=== PATIENT | female | born 1950 | race Caucasian/White ===

== ENCOUNTER 2021-05-24 08:00 | Outpatient (CLI) | payer OTHER | END 2021-05-24 23:59 | disposition home or self-care (01) | LOC: LAB.N 08:00 | PROVIDERS: ATTEND Family Medicine | DX: N39.0 Urinary tract infection, site not specified (principal) | CPT/HCPCS: 87086 ==

== ENCOUNTER 2021-07-31 12:45 | Outpatient (CLI) | payer MEDICARE | END 2021-07-31 12:46 | disposition critical access hospital (66) | LOC: EMS 12:45 | DX: R41.0 Disorientation, unspecified (principal); R46.4 Slowness and poor responsiveness; R25.1 Tremor, unspecified; H53.9 Unspecified visual disturbance; R68.83 Chills (without fever) | CPT/HCPCS: A0425; A0429 ==

== ENCOUNTER 2021-07-31 13:05 | Emergency (ER) | payer MEDICARE, OTHER ==
[2021-07-31] MEDS ORDERED: SODIUM CHLORIDE 0.9% 1,000 ML IV STA (13:43)
--- NOTE | 2021-07-31 13:44 | ED Physician Documentation ---
History of Present Illness - Stated complaint Stated Complaint: CONFUSION - Chief complaint Chief Complaint: Neuro - History obtained from History obtained from: Patient - Additonal information Additional information: The patient is sent to the emergency department by EMS for chief complaint of "I do not feel good". The patient lives at home by herself and is somewhat of a poor historian. She is alert and answers questions and articulate way, but is confused about some of the details. She states that she just "has not felt good" for a couple of days. She says she is constipated for 1 thing. She has not really been coughing and denies any pain in her chest or abdomen. No nausea vomiting. No diarrhea. The patient states that her neighbor came to check on her this morning and was "concerned", the patient is really not sure about what. She denies fevers or chills. No shortness of breath. No other complaints at this time. Review of Systems Ten Systems: 10 systems reviewed and negative Constitutional: reports: Fatigue (Mild) Eyes: reports: Reviewed and negative Ears: reports: Reviewed and negative Nose: reports: Reviewed and negative Throat: reports: Reviewed and negative Cardiac: reports: Reviewed and negative Respiratory: reports: Reviewed and negative GI: reports: Reviewed and negative : reports: Reviewed and negative Skin: reports: Reviewed and negative Musculoskeletal: reports: Reviewed and negative Neurologic: reports: Reviewed and negative Psychiatric: reports: Reviewed and negative Endocrine: reports: Reviewed and negative Immunocompromised: reports: Reviewed and negative PD PAST MEDICAL HISTORY - Present Medications Home Medications: Ambulatory Orders Medication Instructions Recorded Confirmed Sulfamethox/Trimeth 800/160 1 each PO BID #14 tablet 07/31/21 [Bactrim Ds 800/160] - Allergies Allergies/Adverse Reactions: Allergies Allergy/AdvReac Type Severity Reaction Status Date / Time No Known Drug Allergies Allergy Verified 07/31/21 13:16 PD ED PE NORMAL - Vitals Vital signs reviewed: Yes - General General: No acute distress, Well developed/nourished, Other (The patient is alert and bright, and answers questions briskly, but is not clear on some of the details of recent events. However, she is very clear on other details.) - HEENT HEENT: Atraumatic, PERRL, EOMI, Moist mucous membranes - Neck Neck: Supple, no meningeal sign - Cardiac Cardiac: RRR, No murmur, Strong equal pulses - Respiratory Respiratory: No respiratory distress, Clear bilaterally - Abdomen Abdomen: Soft, Non tender, Non distended - Back Back: No CVA TTP - Derm Derm: Normal color, Warm and dry, No rash - Extremities Extremities: No deformity, No edema - Neuro Neuro: Alert and oriented X 3, supervisor stave cutting 2-12 intact, Normal speech - Psych Psych: Normal mood, Normal affect Results - Vitals Vitals: Vital Signs - 24 hr 07/31/21 07/31/21 07/31/21 13:07 13:54 14:24 Temperature 37.2 C Heart Rate 73 64 64 Respiratory 18 21 22 Rate Blood Pressure 151/97 H 138/73 H 147/86 H O2 Saturation 99 96 94 07/31/21 07/31/21 15:00 15:30 Temperature Heart Rate 70 71 Respiratory 23 24 Rate Blood Pressure 154/99 H 167/79 H O2 Saturation 96 95 Oxygen O2 Source Room air - EKG (time done) 1315 Rate: Rate (enter#) (72) Rhythm: Atrial flutter [place]: Normal Intervals: Other (IVCD) QRS: Normal Ischemia: Normal ST segments, Non specific changes Compare to prior EKG: Old EKG unavailable Computer interpretation: Agree with computer - Labs Labs: Laboratory Tests 07/31/21 07/31/21 07/31/21 13:51 13:51 14:55 WBC 7.5 RBC 5.10 Hgb 14.9 Hct 45.9 MCV 90.0 MCH 29.2 MCHC 32.5 RDW 13.5 Plt Count 241 MPV 11.2 H Neut # (Auto) 5.6 Lymph # (Auto) 1.5 [place] # (Auto) 0.4 Eos # (Auto) 0.0 Baso # (Auto) 0.0 Absolute Nucleated RBC 0.00 Nucleated RBC % 0.0 Sodium 141 Potassium 3.7 Chloride 106 Carbon Dioxide 21 Anion Gap 14.0 H BUN 10 Creatinine 0.7 Estimated GFR (MDRD) 83 L Glucose 114 H Calcium 9.7 Total Bilirubin 0.9 AST 26 ALT 22 Alkaline Phosphatase 85 Total Protein 8.6 H Albumin 4.4 Globulin 4.2 Albumin/Globulin Ratio 1.0 Lipase 26 Urine Color DARK YELLOW Urine Clarity HAZY Urine pH 6.5 Ur Specific [place] 1.015 Urine Protein 30 H Urine Glucose (UA) NEGATIVE Urine Ketones 40 H Urine Occult Blood NEGATIVE Urine Nitrite NEGATIVE Urine Bilirubin NEGATIVE Urine Urobilinogen 0.2 (NORMAL) Ur Leukocyte Esterase TRACE H Urine RBC 0-5 Urine WBC 6-10 H Ur Squamous Epith Cells FEW Squamous Urine Bacteria Moderate H Urine Mucus Moderate Strands Ur Microscopic Review INDICATED Urine Culture Comments INDICATED - Rads (name of study) CT head Radiology: Final report received, EMP read indepedently, See rad report (Negative) PD MEDICAL DECISION MAKING - ED course Complexity details: reviewed results, re-evaluated patient, considered differential, d/w patient ED course: The patient was worked up with labs, chest x-ray and CT scan of the head, all of which were unremarkable. EKG was read by machine as atrial flutter and did appear convincing for this, although the monitor reading appeared to be simply normal sinus rhythm. Patient denied palpitations or chest pain. Urinalysis was performed and found to be positive for infection. The patient was started on Bactrim here. She was found to be feeling better after receiving IV fluids. We have contacted her caregiver who states that she lives a block away and stops in to check on the patient every couple of days, as does the patient's landlord. However, and the caregiver is now out of school and can actually stop it more frequently while the patient is on her antibiotics. The patient is agreeable to this plan. We have discussed with her the need for follow-up with her primary care physician if she does not feel good after the week of antibiotics has been completed. Departure - Departure Disposition: 01 Home, Self Care Clinical Impression: UTI (urinary tract infection) Qualifiers: Urinary tract infection type: acute cystitis Hematuria presence: without hematuria Qualified Code(s): N30.00 - Acute cystitis without hematuria Condition: Stable Instructions: ED UTI Cystitis Female Prescriptions: Sulfamethox/Trimeth 800/160 [Bactrim Ds 800/160] 1 each PO BID #14 tablet Comments: Your labs overall looked good, as did your EKG. Your urinalysis showed evidence of a urinary tract infection, for which you have been started on antibiotics today. Your prescription for further antibiotics has been electronically transmitted to [facility] pharmacy in [place]. You should take your next dose of antibiotic tomorrow morning. Please take all the doses, as directed, until the entire course is complete. Please be sure to drink plenty of fluids and follow-up with your primary care physician as needed.
[2021-07-31 13:57] LABS: BASOPHILS % (AUTO) 0.5 %; EOSINOPHILS % (AUTO) 0.3 %; HCT - HEMATOCRIT 45.9 % (37.0-47.0); HGB - HEMOGLOBIN 14.9 g/dL (12.0-16.0); LYMPHOCYTES # (AUTO) 1.5 10^3/uL (1.5-3.5); LYMPHOCYTES % (AUTO) 19.3 %; MEAN CORPUSCULAR HEMOGLOBIN 29.2 pg (27.0-31.0); MEAN CORPUSCULAR HGB CONC 32.5 g/dL (32.0-36.0); MEAN PLATELET VOLUME 11.2 fL (7.9-10.8); MONOCYTES # (AUTO) 0.4 10^3/uL (0.0-1.0); MONOCYTES % (AUTO) 5.7 %; NEUTROPHILS # (AUTO) 5.6 10^3/uL (1.5-6.6); NEUTROPHILS % (AUTO) 74.1 %; PLT - PLATELET COUNT 241 10^3/uL (130-450); RED CELL DISTRIBUTION WIDTH 13.5 % (12.0-15.0); WHITE BLOOD COUNT 7.5 x10^3/uL (4.8-10.8)
[2021-07-31 14:11] LABS: ALBUMIN 4.4 g/dL (3.2-5.5); BILIRUBIN,TOTAL 0.9 mg/dL (0.2-1.0); CALCIUM 9.7 mg/dL (8.5-10.3); CREATININE 0.7 mg/dL (0.4-1.0); POTASSIUM 3.7 mmol/L (3.5-5.0); TOTAL PROTEIN 8.6 g/dL (6.7-8.2)
--- NOTE | 2021-07-31 14:34 | CT Report ---
PROCEDURE: HEAD WO INDICATIONS: Altered mental status TECHNIQUE: Noncontrast 4.5 mm thick angled axial sections acquired from the foramen magnum to the vertex. For r adiation dose reduction, the following was used: automated exposure control, adjustment of mA and/or kV according to patient size. COMPARISON: None. FINDINGS: Image quality: Limited by motion artifact. CSF spaces: Basal cisterns are patent. No extra-axial fluid collections. Ventricles are normal in size and shape. Brain: No midline shift. No intracranial masses or hemorrhage. Shah-white matter interface is norm al. Skull and face: Calvarium and visualized facial bones are intact, without suspicious lesions. Sinuses: Visualized sinuses and mastoids are clear. IMPRESSION: No acute intracranial abnormality. Reviewed by: Harlan Bloom MD on 07/31/2021 2:33 PM PDT Approved by: Harlan Bloom MD on 07/31/2021 2:33 PM PDT Station ID: [id number]
[2021-07-31 15:07] LABS: GLUCOSE, URINE (UA) NEGATIVE (NEGATIVE); KETONES,URINE (UA) 40 mg/dL (NEGATIVE); LEUKOCYTE ESTERASE, URINE TRACE (NEGATIVE); NITRITE,URINE NEGATIVE (NEGATIVE); OCCULT BLOOD,URINE NEGATIVE (NEGATIVE); PH,URINE 6.5 PH (5.0-7.5); PROTEIN,URINE 30 mg/dL (NEGATIVE); UROBILINOGEN,URINE 0.2 (NORMAL) E.U./dL (NORMAL)
[2021-07-31 15:10] LABS: CLARITY,URINE HAZY (CLEAR)
[2021-07-31 15:16] LABS: BILIRUBIN,URINE NEGATIVE (NEGATIVE); ICTOTEST,URINE NEGATIVE
[2021-07-31 15:28] LABS: BACTERIA,URINE Moderate /HPF (None Seen); MUCUS,URINE Moderate Strands; RBC,URINE 0-5 /HPF (0-5); SQUAMOUS EPITHELIAL CELL,UR FEW Squamous (<= Few)
[2021-07-31 15:39] VITALS: BP 167/79
[2021-07-31] MEDS ORDERED: SULFAMETH/TRIMETH DS 800/160 MG TABLET PO STA (15:44)
== END 2021-07-31 16:15 | disposition home or self-care (01) ==
LOC: EDUNIT# → ED 13:05
DX: N30.00 Acute cystitis without hematuria (principal)
CPT/HCPCS: 36415; 70450; 80053; 81001; 83690; 85025; 87086; 93005; 99283; A9270; 81003